=== PATIENT | female | born 1995 | race African-American/Black ===

== ENCOUNTER 2019-10-21 23:00 | Observation (INO) | payer OTHER, MEDICAID ==
[~2019-10-21] VITALS: Ht 167.6 cm; Wt 108.9 kg
[~2019-10-21 23:00] MED LIST: NORPTMEDS CO
[2019-10-21] MEDS ORDERED: PREN-153 OR (23:31)
== END 2019-10-21 23:52 | disposition home or self-care (01) | DRG 833 ==
LOC: LDRP 23:00
PROVIDERS: ADMIT Obstetrics & Gynecology; ATTEND Obstetrics & Gynecology
DX: O26.893 Other specified pregnancy related conditions, third trimester (principal); R10.2 Pelvic and perineal pain; Z3A.39 39 weeks gestation of pregnancy
CPT/HCPCS: 59025; 81002; G0378

== ENCOUNTER 2023-08-13 21:41 | Observation (INO) | payer MEDICAID, OTHER ==
[~2023-08-13] VITALS: Ht 167.6 cm; Wt 108.9 kg
[~2023-08-13 21:41] MED LIST changes: +PREN1TAB71 OR
== END 2023-08-13 22:40 | disposition home or self-care (01) ==
LOC: LDRP 21:41
PROVIDERS: ADMIT Obstetrics & Gynecology; ATTEND Obstetrics & Gynecology
DX: O36.8120 Decreased fetal movements, second trimester, not applicable or unspecified (principal); Z3A.22 22 weeks gestation of pregnancy
CPT/HCPCS: 59025; 81002; 94760; G0378